=== PATIENT | male | born 1940 | race Two or more races ===

== ENCOUNTER 2019-07-27 07:30 | Inpatient (IN) | payer OTHER ==
[~2019-07-27] VITALS: Ht 172.7 cm; Wt 81.6 kg
[~2019-07-27 07:30] MED LIST: AMARYL 4; ASA81 MG PO; GLIMEPIRIDE2 MG; HYZAAR 100-121 UDTAB PO; JANUVIA50 MG PO; LANTUS SOL100 UNIT/1; LIPITOR40 MG PO; NORVASC10 MG PO; PLAVIX75 MG PO; PNEU16DI2; TENORMIN25 MG PO
--- NOTE | 2019-07-27 07:58 | NUR ---
SE RECIBE PACIENTE EN AMBULANCIA REFIERE DIFICULTAD RESPIRATORIA SE AKSHAT S/V Y SE REALIZA EKG EL PATRICIO SE PRESENTA A MARIANNA CEDRIC Y ESTA REFIERE PACIERE PACIENTE SERA EVALUADO EN AREA DE CHEST PAIN
--- NOTE | 2019-07-27 08:23 | NUR ---
SE RECIBE A PACIENTE ALERTA Y ORIENTADO EN ALYCE ELI ESFERAS. ACOMPANANDO DE ZONIA. PACIENTE FUE TRANSFERIDO EN AMBULANCIA DESDE [facility]. TIENE DOS CANALIZACIONES EN EL BRAZO DERECHO, AMBOS CON ANGIO #20. AMBAS CANALIZACIONES ESTAN PATENTES, THERESA DE EDEMA Y ERITEMA. TIENE UN IV FLUID NITROGLYCERIN 50 MG/250 ML BAJANDO A 3 ML/HR. REGULADO POR IV PUMP. PACIENTE TIENE UN FOLLEY CONECTADO, EL CUAL FUE CONECTADO EN EL [facility] EL NELSON 29 DE . AL MOMENTO TIENE UN OUTPUT DE 400 ML. SE UBICA PACIENTE EN KLEVER #18 A NIVEL MAS BAJO CON BARANDAS ELEVADAS, CABECERA A 45 GRADOS. CONECTADO A MONITOR CARDIACO Y OXIMETRIA DE PULSO CONTINUA. TAMBIEN TIENE COSMO CANULA NASAL A 3 LT. PACIENTE NO PRESENTA DOLOR AL MOMENTO.
--- NOTE | 2019-07-27 09:30 | NUR ---
PACIENTE RECIBE VISITA DEL DR. CR.
--- NOTE | 2019-07-27 10:28 | NUR ---
SE NOTIFICA SOBRE VALOR PANICO DE TROPONINA AL DR. CR.
[2019-08-05] MEDS ORDERED: DOXAZOSIN MESYLA2 MG PO (14:20)
[2019-08-05] MEDS ORDERED: TOPROL XL50 M1 PO (14:20)
[2019-08-05] MEDS ORDERED: MYSOLINE50 MG (14:21)
[2019-08-05] MEDS ORDERED: LOSARTAN POTAS100 MG PO (14:21)
[2019-08-05] MEDS ORDERED: ATORVASTATIN CA20 MG PO (14:23)
[2019-08-10] MEDS ORDERED: INTEGRA F CAPS1 EACH PO (16:47)
[2019-08-10] MEDS ORDERED: CLOPIDOGREL BIS75 MG PO (16:47)
[2019-08-10] MEDS ORDERED: AMLODIPINE BESY10 MG PO (16:48)
[2019-08-10] MEDS ORDERED: CARVEDILOL12.5 MG PO (16:48)
[2019-08-10] MEDS ORDERED: ISOSORBIDE MONO30 MG PO (16:49)
[2019-08-10] MEDS ORDERED: LOSARTAN POTAS100 MG PO (16:49)
[2019-08-10] MEDS ORDERED: HYDRALAZINE HCL50 MG PO (16:50)
[2019-08-10] MEDS ORDERED: ADULT ASPIRIN81 MG PO (16:50)
== END 2019-08-10 17:06 | disposition home or self-care (01) | DRG 280 ==
LOC: ER 07:30 → ICU-2 10:04 → SEC-K 07-30 08:01 → SURG 07-30 13:47 → MEDI 08-03 17:22 → MEDJ 08-05 21:04
PROVIDERS: ADMIT Internal Medicine
PROC: B246ZZZ Ultrasonography of Right and Left Heart (ICD-10-PCS; principal; 2019-07-27)
PROC: 3E0F7GC Introduction of Other Therapeutic Substance into Respiratory Tract, Via Natural or Artificial Opening (ICD-10-PCS; 2019-07-27)
PROC: BW40ZZZ Ultrasonography of Abdomen (ICD-10-PCS; 2019-07-28)
PROC: 4A12X4Z Monitoring of Cardiac Electrical Activity, External Approach (ICD-10-PCS; 2019-07-30)
PROC: 4A02XM4 Measurement of Cardiac Total Activity, External Approach (ICD-10-PCS; 2019-08-01)
PROC: 3E033HZ Introduction of Radioactive Substance into Peripheral Vein, Percutaneous Approach (ICD-10-PCS; 2019-08-01)
DX: I13.0 Hypertensive heart and chronic kidney disease with heart failure and stage 1 through stage 4 chronic kidney disease, or unspecified chronic kidney disease (principal); I50.23 Acute on chronic systolic (congestive) heart failure; I21.4 Non-ST elevation (NSTEMI) myocardial infarction; N17.8 Other acute kidney failure; I24.8 Other forms of acute ischemic heart disease; N18.3 Chronic kidney disease, stage 3 (moderate); E11.65 Type 2 diabetes mellitus with hyperglycemia; E11.69 Type 2 diabetes mellitus with other specified complication; F41.8 Other specified anxiety disorders

== ENCOUNTER 2020-02-26 17:53 | Emergency (ER) | payer OTHER ==
[~2020-02-26] VITALS: Ht 172.7 cm; Wt 81.6 kg
[~2020-02-26 17:53] MED LIST changes: +ADULT ASPIRIN81 MG PO; +AMLODIPINE BESY10 MG PO; +ATORVASTATIN CA20 MG PO; +CARVEDILOL12.5 MG PO; +CLOPIDOGREL BIS75 MG PO; +DOXAZOSIN MESYLA2 MG PO; +HYDRALAZINE HCL50 MG PO; +INTEGRA F CAPS1 EACH PO; +ISOSORBIDE MONO30 MG PO; +LOSARTAN POTAS100 MG PO; +MYSOLINE50 MG; +TOPROL XL50 M1 PO
[2020-02-26] MEDS ORDERED: ISOSORBIDE DINI40 M1 PO (17:58)
[2020-02-26] MEDS ORDERED: ISOSORBIDE DINITRATE PO (17:59)
[2020-02-26] MEDS ORDERED: LANTUS SOL100 UNIT/1 (18:10)
== END 2020-02-26 22:22 | disposition home or self-care (01) ==
LOC: ER 17:53
DX: S00.03XA Contusion of scalp, initial encounter (principal); W18.09XA Striking against other object with subsequent fall, initial encounter; Y93.89 Activity, other specified; Y92.018 Other place in single-family (private) house as the place of occurrence of the external cause; Y99.8 Other external cause status

== ENCOUNTER 2020-04-25 17:21 | Emergency (ER) | payer OTHER ==
[~2020-04-25] VITALS: Ht 170.2 cm; Wt 56.7 kg
[~2020-04-25 17:21] MED LIST changes: +ISOSORBIDE DINI40 M1 PO; +ISOSORBIDE DINITRATE PO
== END 2020-04-25 20:29 | disposition home or self-care (01) ==
LOC: ER 17:21
DX: I13.0 Hypertensive heart and chronic kidney disease with heart failure and stage 1 through stage 4 chronic kidney disease, or unspecified chronic kidney disease (principal); E11.22 Type 2 diabetes mellitus with diabetic chronic kidney disease; N18.3 Chronic kidney disease, stage 3 (moderate); I50.9 Heart failure, unspecified; I24.9 Acute ischemic heart disease, unspecified; I16.0 Hypertensive urgency; R68.89 Other general symptoms and signs; F41.8 Other specified anxiety disorders; Z79.4 Long term (current) use of insulin

== ENCOUNTER 2020-07-04 22:06 | Emergency (ER) | payer OTHER ==
[~2020-07-04] VITALS: Ht 170.2 cm; Wt 49.9 kg
[2020-07-04] MEDS ORDERED: VITAMIN D310 MCG/1 M (22:31)
[2020-07-04] MEDS ORDERED: CENTRUM SILVER1 EAC2 (22:31)
== END 2020-07-05 16:26 | disposition home or self-care (01) ==
LOC: ER 22:06
DX: I12.0 Hypertensive chronic kidney disease with stage 5 chronic kidney disease or end stage renal disease (principal); E11.22 Type 2 diabetes mellitus with diabetic chronic kidney disease; N18.6 End stage renal disease; R41.0 Disorientation, unspecified; E87.6 Hypokalemia; E86.0 Dehydration; N39.0 Urinary tract infection, site not specified; B96.1 Klebsiella pneumoniae [K. pneumoniae] as the cause of diseases classified elsewhere; J90 Pleural effusion, not elsewhere classified; R53.1 Weakness; Z03.818 Encounter for observation for suspected exposure to other biological agents ruled out; Z99.2 Dependence on renal dialysis; Z79.4 Long term (current) use of insulin

== ENCOUNTER 2020-08-22 00:20 | Inpatient (IN) | payer OTHER ==
[~2020-08-22] VITALS: Ht 274.3 cm; Wt 5.0 kg
[~2020-08-22 00:20] MED LIST changes: +CENTRUM SILVER1 EAC2; +VITAMIN D310 MCG/1 M
== END 2020-09-08 14:15 | disposition expired | DRG 207 ==
LOC: ER 00:20 → ICU-2 11:55 → SEC-K 11:55 → ICU 11:55 → ICU-2 12:18 → ICU 15:15
PROVIDERS: ADMIT Internal Medicine; ATTEND Internal Medicine
PROC: B24BZZZ Ultrasonography of Heart with Aorta (ICD-10-PCS; 2020-08-22)
PROC: 02HV33Z Insertion of Infusion Device into Superior Vena Cava, Percutaneous Approach (ICD-10-PCS; 2020-08-24)
PROC: 4A12X4Z Monitoring of Cardiac Electrical Activity, External Approach (ICD-10-PCS; 2020-09-01)
PROC: 5A2204Z Restoration of Cardiac Rhythm, Single (ICD-10-PCS; 2020-09-01)
PROC: 5A1D70Z Performance of Urinary Filtration, Intermittent, Less than 6 Hours Per Day (ICD-10-PCS; 2020-09-01)
PROC: 0BH17EZ Insertion of Endotracheal Airway into Trachea, Via Natural or Artificial Opening (ICD-10-PCS; principal; 2020-09-04)
PROC: 5A1955Z Respiratory Ventilation, Greater than 96 Consecutive Hours (ICD-10-PCS; 2020-09-04)
PROC: 4A033R1 Measurement of Arterial Saturation, Peripheral, Percutaneous Approach (ICD-10-PCS; 2020-09-04)
PROC: 30233N1 Transfusion of Nonautologous Red Blood Cells into Peripheral Vein, Percutaneous Approach (ICD-10-PCS; 2020-09-04)
DX: J96.01 Acute respiratory failure with hypoxia (principal); N18.6 End stage renal disease; I21.4 Non-ST elevation (NSTEMI) myocardial infarction; E43 Unspecified severe protein-calorie malnutrition; J15.6 Pneumonia due to other Gram-negative bacteria; I13.2 Hypertensive heart and chronic kidney disease with heart failure and with stage 5 chronic kidney disease, or end stage renal disease; I16.9 Hypertensive crisis, unspecified; N39.0 Urinary tract infection, site not specified; E87.1 Hypo-osmolality and hyponatremia; I47.2 Ventricular tachycardia; E11.9 Type 2 diabetes mellitus without complications; Z20.828 Contact with and (suspected) exposure to other viral communicable diseases; E86.0 Dehydration; Z95.1 Presence of aortocoronary bypass graft; I50.9 Heart failure, unspecified; E87.6 Hypokalemia; B96.1 Klebsiella pneumoniae [K. pneumoniae] as the cause of diseases classified elsewhere; Z99.2 Dependence on renal dialysis; E11.65 Type 2 diabetes mellitus with hyperglycemia; Z66 Do not resuscitate; D64.9 Anemia, unspecified